=== PATIENT | male | born 1990 | race Two or more races ===

== ENCOUNTER 2024-09-08 22:07 | Emergency (ER) | payer MEDICAID, SELFPAY ==
[2024-09-08 22:11] VITALS: PULSE 112; O2SAT 98
[2024-09-08 22:15] VITALS: BMI 36.1
--- NOTE | 2024-09-08 22:19 | XR_ITS ---
EXAMINATION: Ankle, right 3 views . Technique: Ankle AP, oblique, lateral 3 views Date and time of exam: September 08, 2024 1024 hrs. Indications: Patient fell today with injury to the ankle, ankle pain Findings: Old bone densities at the medial malleolus No acute fracture No dislocation Impression: No acute fracture
[2024-09-08 22:40] VITALS: BP 105/63; PULSE 68; RESP 18; TEMP 36.9; O2SAT 98; BMI 35.4
--- NOTE | 2024-09-09 02:18 | EDNOTE_ITS ---
Lower Extremity Injury RME/HPI General Chief Complaint: Extremity Injury, Lower Stated Complaint: POSSIBLE RT ANKLE FRACTURE Time Seen by Provider: 09/08/24 22:18 Arrival date/time: 09/08/24 22:07 34M with no significant PMH presents to ED with R ankle pain after he jumped up, landed, and heard a crack/pop. Limitations: no limitations Related Data Previous Rx's ?Medication ?Instructions ?Recorded ibuprofen 800 mg tablet 800 mg PO Q8H PRN pain #30 tabs 12/02/22 ondansetron 4 mg disintegrating 4 mg PO Q6H PRN nausea and 12/02/22 tablet vomiting #10 tabs ibuprofen 800 mg tablet 800 mg PO Q8H PRN pain #10 tabs 12/14/22 Allergies Allergy/AdvReac Type Severity Reaction Status Date / Time No Known Allergies Allergy Verified 02/09/24 12:35 Review of Systems Review of Systems Systems Reviewed: All systems reviewed, normal except as documented Constitutional Constitutional: Reports system reviewed and no additional complaints, except as documented, Denies fever(s) and Denies headache(s) ENT Ears, Nose, Mouth, and Throat: Denies disequilibrium and Denies headache(s) Cardiovascular Cardiovascular: Reports system reviewed and no additional complaints, except as documented, Denies chest pain and Denies dyspnea Respiratory Respiratory: Reports system reviewed and no additional complaints, except as documented, Denies cough and Denies dyspnea Gastrointestinal Gastrointestinal: Reports system reviewed and no additional complaints, except as documented, Denies abdominal pain, Denies nausea and Denies vomiting Musculoskeletal Musculoskeletal: Reports as per HPI and Reports arthralgias Neurologic Neurologic: Reports system reviewed and no additional complaints, except as documented, Denies confusion, Denies disequilibrium and Denies headache(s) Psychiatric Psychiatric: Denies confusion Past Medical History Social History SMOKING STATUS: Never smoker SUBSTANCE USE: marijuana ED Exam General Limitations: Present no limitations General appearance: Present alert and in no apparent distress Head Head exam: Present atraumatic Eye Eye exam: Present normal appearance, PERRL and EOMI ENT ENT exam: Present normal exam, normal oropharynx and mucous membranes moist Neck Neck exam: Present normal inspection, full ROM and trachea midline Chest Chest inspection: Present normal inspection and symmetric chest wall rise Respiratory Respiratory exam: Present normal lung sounds bilaterally Cardiovascular Cardiovascular exam: Present regular rate, normal rhythm and normal heart sounds Abdominal Exam Abdominal exam: Present soft and normal bowel sounds Extremities Exam Extremities exam: Present full ROM Expanded Lower Extremity Exam Ankle exam: Present full ROM (R) and tenderness Back Exam Back exam: Present normal inspection and full ROM Neurological Exam Neurological exam: Present alert, oriented X3 and CN II-XII intact Psychiatric Psychiatric exam: Present normal affect and normal mood Skin Skin exam: Present warm, dry, intact and normal color Course Quality Measures none Orders Category Date Time Status Crutches .NOW Care 09/08/24 23:55 Completed jessica wrap [Splint / Immobilizer] STAT Care 09/08/24 23:55 Completed XR ankle comp RT min 3V Stat Exams 09/08/24 22:19 Completed Vital Signs Vital signs: Vital Signs Temperature 98.5 F 09/08/24 22:40 Pulse Rate 68 09/08/24 22:40 Respiratory Rate 18 09/08/24 22:40 Blood Pressure 105/63 09/08/24 22:40 Pulse Oximetry (%) 98 09/08/24 22:40 Oxygen Delivery Method Room Air 09/08/24 22:40 O2 at 98% on RA and WNLs Extremity Injury, Lower MDM Narrative MDM Narrative:: 34M with no significant PMH presents to ED with R ankle pain after he jumped up, landed, and heard a crack/pop. Physical exam reveals R ankle tenderness. ROM intact, but painful. Cap refill normal. Patient is afebrile, calm, and alert. XR no fx. Given JESSICA, crutches, and psychosocial rehabilitation counselor. Patient data External records reviewed:: [facility] previous records Clinical information provided by:: patient Social determinants that could affect healthcare access:: none Patient has the following chronic illnesses:: none How is presenting disease/condition affected by chronic disease/condition?: no chronic disease Evaluation data The following diagnostics were reviewed and interpreted by me:: radiology exam(s) Lab and/or radiology exams considered but not ordered:: ordered Interpretation Summary: above Medications / Prescriptions Medications or Prescriptions considered but not ordered:: not ordered Medication administrations:: n/a Consultations Consultation(s) initiated? (list below): No Diagnosis Extremity Injury, Lower Differential Diagnosis: ankle sprain and strain, acute internal derangement of knee, puncture wound of foot, fracture of toe and ankle fracture Most likely diagnosis given after review of the tests above:: ankle sprain and strain Admission Indicated Admission indicated?: not indicated Admission Request Was there a request for admission?: No Disposition Plan Disposition Plan: Discharge Discharge Attestation Discharge Attestation: The patient and all family members were given an opportunity to ask questions and understood the discharge instructions. Discharge instructions specifically effects, indications for sooner follow up or return to the emergency department, and the expected course of current diagnosis. Patient condition: Stable Discharge Plan Plan Patient Disposition: HOME (Self Care) Disposition Comment: Stable Prescriptions/Referrals Prescriptions/Med Rec: No Action ibuprofen 800 mg tablet 800 mg PO Q8H PRN (Reason: pain) Qty: 10 0RF ibuprofen 800 mg tablet 800 mg PO Q8H PRN (Reason: pain) Qty: 30 0RF ondansetron 4 mg tablet,disintegrating 4 mg PO Q6H PRN (Reason: nausea and vomiting) Qty: 10 0RF Problem List Clinical Impression: Ankle sprain and strain Patient/Caregiver Discharge Instructions Education Materials: ED Ankle Sprain (Adult) Additional Instructions: Please follow-up with PCP within 24-48 hours and return immediately if symptoms worsen. If problem persists, recommend outpatient PT and/or MRI follow-up. In the meantime, rest, use ice/heat, and/or compression. Print Language: Greek Stand Alone Forms: Patient Portal Info Letter ADAN/ELIANE Supervising Physician ADAN/ELIANE Supervising Physician: Dr. Purvis
== END 2024-09-09 00:20 | disposition home or self-care (01) ==
LOC: SERX 09-09 00:14
PROVIDERS: Emergency Provider Emergency Medicine
DX: S93.401A Sprain of unspecified ligament of right ankle, initial encounter (principal); S96.911A Strain of unspecified muscle and tendon at ankle and foot level, right foot, initial encounter; W17.89XA Other fall from one level to another, initial encounter; Y93.39 Activity, other involving climbing, rappelling and jumping off
CPT/HCPCS: 73610; 99283